=== PATIENT | male | born 1995 | race Caucasian/White ===

== ENCOUNTER 2019-10-11 08:00 | Emergency (ER) | payer OTHER ==
[~2019-10-11] VITALS: Ht 182.9 cm; Wt 89.9 kg
[2019-10-11] MEDS ORDERED: BABY ASP (08:07)
[2019-10-11] MEDS ORDERED: ACETAMINOPHEN 500 MG TAB PO ONE (08:30)
[2019-10-11 09:00] VITALS: BP 143/79
--- NOTE | 2019-10-11 09:03 | REP ---
Portable chest x-ray: Two views. History: Chest pain. No comparison study. Findings: The lungs are well inflated and clear. Pleural angles are sharp. Heart size is normal. Pulmonary vasculature is not increased. No bony abnormalities seen. Impression: Negative portable chest x-ray. Electronically Signed by Ghulam Joiner MD 10/11/2019 08:53 A
--- NOTE | 2019-10-12 07:09 | ECGEPIP ---
[facility] - ED Test Date: 2019-10-11 Pat Name: ROSE BELL Department: Room: - Gender: Male Teacher Counselor: : [id number] Requested By: Reed Recio Order Number: [id number] Reading MD: Cecille Webb Measurements Intervals Theodore Rate: 79 P: 50 DC: 143 QRS: 62 QRSD: 99 T: 12 QT: 349 QTc: 401 Interpretive Statements SINUS RHYTHM WITH SINUS ARRHYTHMIA Electronically Signed on 10-12-2019 7:09:37 EDT by Cecille Webb
== END 2019-10-11 09:13 | disposition home or self-care (01) ==
LOC: M ED 08:00
DX: R07.9 Chest pain, unspecified (principal); F17.210 Nicotine dependence, cigarettes, uncomplicated